=== PATIENT | female | born 1975 | race Asian ===

== ENCOUNTER 2016-12-08 00:53 | Emergency (ER) | payer OTHER ==
[~2016-12-08] VITALS: Ht 167.6 cm; Wt 117.9 kg
[~2016-12-08 00:53] MED LIST: ASA LOW DOSE81 MG OR; LISI10TA11 PO; VERAPAMIL240 M1 PO
[2016-12-08 01:30] VITALS: BP 176/98; TEMP 98.6
== END 2016-12-08 01:30 | disposition home or self-care (01) ==
LOC: ED 00:53
PROC: 09C37ZZ Extirpation of Matter from Right External Auditory Canal, Via Natural or Artificial Opening (ICD-10-PCS; principal; 2016-12-08)
DX: T16.1XXA Foreign body in right ear, initial encounter (principal); W45.8XXA Other foreign body or object entering through skin, initial encounter
CPT/HCPCS: 99283

== ENCOUNTER 2017-03-01 11:41 | Emergency (ER) | payer OTHER ==
[~2017-03-01] VITALS: Ht 167.6 cm; Wt 117.9 kg
[2017-03-01 12:32] LABS: PLATELET COUNT 238 K/uL (152-353)
[2017-03-01 13:04] VITALS: BP 151/89; TEMP 99.1
== END 2017-03-01 13:05 | disposition home or self-care (01) ==
LOC: ED 11:41
DX: J06.9 Acute upper respiratory infection, unspecified (principal); B34.9 Viral infection, unspecified
CPT/HCPCS: 85027; 87081; 87804; 87880; 94640; 94664; 94760; 99283

== ENCOUNTER 2017-08-22 20:17 | Emergency (ER) | payer OTHER ==
[~2017-08-22] VITALS: Ht 167.6 cm; Wt 117.9 kg
[2017-08-22 20:21] VITALS: TEMP 98
[2017-08-22] MEDS ORDERED: LISI20TA11 PO (20:30)
[2017-08-22 20:55] LABS: PLATELET COUNT 277 K/uL (152-353)
[2017-08-22 21:03] LABS: POTASSIUM 3.3 mmol/L (3.6-5.2)
[2017-08-22 21:29] VITALS: BP 150/71
== END 2017-08-22 21:30 | disposition home or self-care (01) ==
LOC: ED 20:17
DX: J06.9 Acute upper respiratory infection, unspecified (principal)
CPT/HCPCS: 36415; 80053; 85027; 87081; 87880; 99283

== ENCOUNTER 2017-08-26 11:37 | Outpatient (CLI) | payer OTHER ==
[~2017-08-26 11:37] MED LIST changes: +LISI20TA11 PO
== END 2017-08-26 11:49 | disposition short-term general hospital (02) ==
LOC: AMB 11:37
DX: J20.9 Acute bronchitis, unspecified (principal); R06.02 Shortness of breath
CPT/HCPCS: A0425; A0427

== ENCOUNTER 2017-08-26 11:53 | Inpatient (IN) | payer OTHER ==
[~2017-08-26] VITALS: Ht 167.6 cm; Wt 118.6 kg
[2017-08-26] VITALS (12 sets, daily range): BP systolic 130–209; BP diastolic 66–105; TEMP 98.6–99.4; Ht 167.6 cm; Wt 118.6 kg
[2017-08-26 13:05] LABS: PLATELET COUNT 330 K/uL (152-353)
[2017-08-26 13:27] LABS: POTASSIUM 3.6 mmol/L (3.6-5.2)
--- NOTE | 2017-08-26 16:01 | NUR ---
PT TO ICU BED 2 VIA WC FROM ER. PT AMBULATED TO BATHROOM & CHANGED INTO A GOWN, PT VOIDED 200 ML CL YELLOW URINE. PT WITH NSR, BP 158/86. DISCUSSED PT'S NICARDIPINE DRIP WITH MAXIMILIAN MONTES DE OCA, OK TO HOLD DRIP FOR NOW.
--- NOTE | 2017-08-26 16:59 | NUR ---
TALKED WITH DR DHALIWAL R/Santhosh WILLIAMSON,'HOLD FOR NOW','WE'LL JUST WATCH HER & WE'LL ORDER A PRN BP MED IV'
--- NOTE | 2017-08-26 17:30 | NUR ---
PT UP TO BR,VOIDED 250 ML CL YELLOW URINE. BP UP TO 180'S OVER 90'S WHEN FIRST BACK TO BED BUT BACK DOWN AFTER [id number].
--- NOTE | 2017-08-26 17:44 | NUR ---
MAXIMILIAN NAGY SEARCH PLANNER IN TO SEE PT. DISCUSSED BRONCHITIS & HOME MEDS.
--- NOTE | 2017-08-26 18:30 | NUR ---
PT FED SELF 75% OF MEAL.
--- NOTE | 2017-08-26 21:00 | NUR ---
B/P IS 156/101, PT IN NO DISTRESS. PT HAD NIGHTLY B/P MEDICATION LESS THAN 30 MINUTES AGO, WILL CONTINUE TO WATCH B/P CLOSELY.
--- NOTE | 2017-08-26 22:00 | NUR ---
B/P HAS DECREASED TO 147/81, WILL CONTINUE TO MONITOR CLOSELY.
--- NOTE | 2017-08-26 23:42 | NUR ---
PT AWAKE AND ORIENTED WITH NO DISTRESS NOTED, IV LOCK INTACT, O2 IN USE, PT WALKED TO BATHROOM AND BACK WITH NO PROBLEMS NOTED AND GAIT IS STEADY, NO SOB NOTED, WILL MONITOR, RAILS UP X3, BED IN LOW POSITION.
[2017-08-27] VITALS (15 sets, daily range): BP systolic 115–156; BP diastolic 57–89; TEMP 98.2–99.1
--- NOTE | 2017-08-27 00:22 | NUR ---
RESTING QUIETLY IN BED WITH EYES CLOSED, NO S/S OF PAIN OR DISTRESS NOTED, RESP RATE NONLABORED, O2 AT 2LPM VIA NC WITH SAT OF 98%, IV LOCK INTACT TO L HAND WITH NO PROBLEMS NOTED TO SITE, SENIOR FUND ACCOUNTANT IN USE, VITALS BEING MONITORED Q HOUR, B/P REMAINS NORMAL AT THIS TIME, WILL MONITOR, RAILS UP X3, BED IN LOW POSITION.
--- NOTE | 2017-08-27 02:25 | NUR ---
RESTING WITH EYES CLOSED AND NO DISTRESS NOTED, IV LOCK INTACT, O2 IN USE, VITALS STABLE, DIAMOND ASSORTER IN USE, WILL CONTINUE TO MONITOR CLOSELY, RAILS UP, BED IN LOW POSITION.
--- NOTE | 2017-08-27 06:28 | NUR ---
RESTING QUIETLY IN BED WITH EYES CLOSED ON L SIDE, NO S/S OF PAIN OR DISTRESS NOTED, IV LOCK INTACT TO L HAND, RESP RATE NONLABORED, O2 AT 2LPM VIA NC WITH SAT OF 100%, B/P WNL, VENDER IN USE, VITALS BEING MONITORED, WILL MONITOR CLOSELY, RAILS UP X3, BED IN LOW POSITION.
--- NOTE | 2017-08-27 07:50 | NUR ---
PT UP TO BATHROOM TO WASH OFF FACE AND BRUSH TEETH AT THIS TIME. PT REQUIRES NO ASSISTANCE
--- NOTE | 2017-08-27 09:05 | NUR ---
MAXIMILIAN NAGY, LOOK OUT TOWER FIRE WATCHER AT BEDSIDE ROUNDING ON PATIENT. NEW ORDERS RECEIVED.
--- NOTE | 2017-08-27 11:30 | NUR ---
DR. EDMOND AT BEDSIDE
--- NOTE | 2017-08-27 12:04 | NUR ---
VISITORS AT BEDSIDE AT THIS TIME
[2017-08-27 12:27] LABS: PLATELET COUNT 343 K/uL (152-353)
[2017-08-27 12:36] LABS: POTASSIUM 3.7 mmol/L (3.6-5.2)
--- NOTE | 2017-08-27 15:08 | NUR ---
REPORT GIVEN TO SULY GARCIA RN
--- NOTE | 2017-08-27 15:20 | NUR ---
PT TRANSFERRED TO ROOM 1117 ON MED/SURG FLOOR VIA WHEELCHAIR AT THIS TIME
[2017-08-28] VITALS: BP 120/61; TEMP 98.1
[2017-08-28 04:00] VITALS: BP 135/82; TEMP 98.2
[2017-08-28 05:21] LABS: PLATELET COUNT 316 K/uL (152-353)
[2017-08-28 08:00] VITALS: BP 154/99; TEMP 98.3
[2017-08-28] MEDS ORDERED: ALBUSOL IN (10:21)
[2017-08-28] MEDS ORDERED: AZIT250T3 PO (10:21)
[2017-08-28] MEDS ORDERED: MEDROL DOSEPAK4 MG PO (10:21)
[2017-08-28] MEDS ORDERED: ALBUTEROL4 M1 PO (10:21)
[2017-08-28] MEDS ORDERED: BUDE1AER3 INH (10:21)
[2017-08-28 12:00] VITALS: BP 131/92; TEMP 98.5
--- NOTE | 2017-08-28 14:09 | NUR ---
PT GONE TO X-RAY AT THIS TIME
--- NOTE | 2017-08-28 14:19 | NUR ---
PT BACK TO ROOM FROM RADIOLOGY AT THIS TIME
--- NOTE | 2017-08-28 15:27 | NUR ---
22G IV TO THE LEFT HAND D/C AT THIS TIME. PT TOLERATED WELL. DISCHARGE INSTRUCTIONS WERE GIVEN TO PT AT THIS TIME. PT VERBALIZED UNDERSTANDING OF INSTRUCTIONS AND NEW MEDICATIONS. PT IS NOW AWAITING A RIDE HOME AT THIS TIME.
--- NOTE | 2017-08-28 16:15 | NUR ---
PT D/C VIA WHEELCHAIR AT THIS TIME
== END 2017-08-28 16:15 | disposition home or self-care (01) | DRG 202 ==
LOC: ED 11:53 → ICU 14:00 → MED/SURG 08-27 15:19
PROVIDERS: ADMIT Family Medicine
DX: J20.9 Acute bronchitis, unspecified (principal); J98.11 Atelectasis; I16.0 Hypertensive urgency; E66.01 Morbid (severe) obesity due to excess calories; R05 Cough; I51.7 Cardiomegaly
CPT/HCPCS: 80053; 83880; 84484; 85027; 85379; 86738; 93005; 94640; 94664; 94760; 96374; 96375; 99285; J0360; J0456; J0696; J1650; J1940; J2270; J2930; J3490; Q9963

== ENCOUNTER 2018-05-25 12:03 | Emergency (ER) | payer OTHER ==
[~2018-05-25] VITALS: Ht 167.6 cm; Wt 121.6 kg
[~2018-05-25 12:03] MED LIST changes: +ALBUSOL IN; +ALBUTEROL4 M1 PO; +AZIT250T3 PO; +BUDE1AER3 INH; +MEDROL DOSEPAK4 MG PO
[2018-05-25 13:44] LABS: PLATELET COUNT 246 K/uL (152-353)
[2018-05-25 13:55] LABS: POTASSIUM 3.8 mmol/L (3.6-5.2)
[2018-05-25 14:55] VITALS: BP 148/88; TEMP 98
== END 2018-05-25 14:55 | disposition home or self-care (01) ==
LOC: ED 12:03
PROVIDERS: Family Medicine
DX: J40 Bronchitis, not specified as acute or chronic (principal)
CPT/HCPCS: 36415; 80053; 81000; 85027; 87502; 87651; 99283

== ENCOUNTER 2018-05-25 21:38 | Emergency (ER) | payer OTHER ==
[~2018-05-25] VITALS: Ht 167.6 cm; Wt 121.6 kg
[2018-05-25 23:14] VITALS: BP 168/98; TEMP 98.8
== END 2018-05-25 23:15 | disposition home or self-care (01) ==
LOC: ED 21:38
DX: J40 Bronchitis, not specified as acute or chronic (principal); M79.10 Myalgia, unspecified site; I10 Essential (primary) hypertension; R00.0 Tachycardia, unspecified
CPT/HCPCS: 93005; 99282

== ENCOUNTER 2018-06-02 11:55 | Outpatient (CLI) | payer OTHER | END 2018-06-02 20:09 | disposition home or self-care (01) | LOC: RAD 11:55 | DX: J40 Bronchitis, not specified as acute or chronic (principal) ==

== ENCOUNTER 2019-04-22 11:24 | Outpatient (CLI) | payer OTHER | END 2019-04-22 16:00 | disposition home or self-care (01) | LOC: RAD 11:24 | DX: R05 Cough (principal) ==

== ENCOUNTER 2020-05-03 12:32 | Outpatient (CLI) | payer BC, OTHER | END 2020-05-03 20:46 | disposition home or self-care (01) | LOC: RAD 12:32 | PROVIDERS: ATTEND Nurse Practitioner Family | DX: Z03.89 Encounter for observation for other suspected diseases and conditions ruled out (principal) ==

== ENCOUNTER 2020-12-24 13:21 | Outpatient (CLI) | payer BC, OTHER ==
[2020-12-24 14:13] LABS: PLATELET COUNT 273 K/uL (152-353)
== END 2020-12-24 22:25 | disposition home or self-care (01) ==
LOC: RAD 13:21
PROVIDERS: ATTEND Nurse Practitioner Family
DX: U07.1 COVID-19 (principal); J12.82 Pneumonia due to coronavirus disease 2019
CPT/HCPCS: 36415; 80053; 82728; 85027; 85379; 86140; Q9963

== ENCOUNTER 2021-01-04 11:46 | Outpatient (CLI) | payer BC, OTHER ==
[2021-01-04 13:20] LABS: POTASSIUM 4.1 mmol/L (3.6-5.2); SODIUM 139 mmol/L (136-145)
== END 2021-01-04 21:43 | disposition home or self-care (01) ==
LOC: CT 11:46
PROVIDERS: ATTEND Nurse Practitioner Family
DX: U07.1 COVID-19 (principal)
CPT/HCPCS: 36415; 80053; 82550; 82553; 84484; 85379; Q9963

== ENCOUNTER 2021-01-07 13:06 | Outpatient (CLI) | payer BC, OTHER | END 2021-01-07 20:07 | disposition home or self-care (01) | LOC: RAD 13:06 | PROVIDERS: ATTEND Nurse Practitioner Family | DX: U07.1 COVID-19 (principal) ==

== ENCOUNTER 2021-01-30 15:13 | Observation (INO) | payer BC ==
[~2021-01-30] VITALS: Ht 167.6 cm; Wt 123.4 kg
[2021-01-30] VITALS (7 sets, daily range): BP systolic 151–209; BP diastolic 78–103; TEMP 100–103.2; Ht 167.6 cm; Wt 123.4 kg
[2021-01-30 16:45] LABS: POTASSIUM 3.8 mmol/L (3.6-5.2)
[2021-01-30 16:49] LABS: PLATELET COUNT 236 K/uL (152-353)
--- NOTE | 2021-01-30 18:45 | NUR ---
PT ADMITTEDT TO RM VIA WHEELCHAIR, PT AMBULATED TO BED WITHOUT ASSISTANCE, NADNOTED, NONLABORED BREATHING, PT ORIENTED TO RM AND CALL LIGHT, PT VERBALIZED UNDERSTANDING, PT HAS NO NEEDS AT THISTIME, CALL LIGHT WITHIN REACH, WILL CONTINUE TO MONITOR
--- NOTE | 2021-01-30 21:55 | NUR ---
NOTIFIED KATHRYN AT THIS TIME OF PT'S DIAGNOSIS, BP OF 176/96 ON ADMISSION, AND A FEVER OF 102.4 AND PT GIVEN TYLENOL AT THIS TIME. PHYSICIAN KATHRYN ORDERED BLOOD CULTURES TIMES TWO, A REPEAT LACTIC ACID, CRP AND TORADOL 30 MG IV Q6H X'S 4 DOSES AT THIS TIME. ALSO INSTRUCTED TO GIVE ONE TIME DOSE OF PT'S HOME MEDICATIONS VERAPAMIL 240 AND LOSARTAN 100 MG. WILL MONITIOR IN CHANGE OF FEVER AND BLOOD PRESSURE. ALSO RECIEVED ORDERS NORMAL SALINE @ 125 ML/HR/, DUONEBS Q4H, AND PULMICORT Q12H'S.
--- NOTE | 2021-01-30 23:18 | NUR ---
NOTIFIED KATHRYN AT THIS TIME OF CRP- 22.9 AND LACTIC ACID TRENDED DOWN TO 0.8.
[2021-01-31 04:00] VITALS: BP 123/56; TEMP 97.8
[2021-01-31 05:10] LABS: PLATELET COUNT 219 K/uL (152-353)
--- NOTE | 2021-01-31 05:15 | NUR ---
PT'S BP AT THIS TIME HAS RESOLVED TO 125/56 AND TEMPERATURE HAS DECREASED TO 97.8 ON VITALS AFTER TORADOL 30 MG, TYLENOL 1000 MG, AND PT'S ONE TIME DOSE OF HOME MEDICATIONS.
[2021-01-31 05:21] LABS: POTASSIUM 3.5 mmol/L (3.6-5.2)
[2021-01-31] MEDS ORDERED: VERA240T17 PO (06:51)
[2021-01-31] MEDS ORDERED: COZAAR100 MG PO (06:52)
[2021-01-31 08:00] VITALS: BP 103/50; TEMP 98.2
[2021-01-31 12:00] VITALS: BP 135/58; TEMP 97.5
--- NOTE | 2021-01-31 15:26 | NUR ---
PT DENIES ANY CURRENT PAIN/DISCOMFORT. PT UP GETTING READY TO TAKE A SHOWER. IV SITE TO RIGHT HAND COVERED AND IVF ON HOLD UNTIL AFTER SHOWER.
[2021-01-31 16:00] VITALS: BP 148/80; TEMP 98.8
--- NOTE | 2021-01-31 18:05 | NUR ---
PT LAYING IN BED IN HIGH FOWLERS POSITION. ADMINISTERED LAST ORDERED DOSE OF TORADOL. PT AMBULATED TO SHOWER WITH NO DIFFICULTY. PT HAS BEEN AFEBRILE AND MAINTAINED STABLE BLOOD PRESSURE THIS SHIFT. SON AND PARENTS VISITED PT TODAY. PT ALERT AND ORIENTED X4. NO VOICED COMPLAINTS. PT STATED THAT SHE WAS "GIVE OUT" AFTER TAKING A SHOWER AND GETTING DRESSED. ENCOURAGED PT TO REST THE REMAINDER OF THE DAY. IV SITE INTACT WITH NO SWELLING OR REDNESS NOTED. NAD NOTED. MEDS IV/PO ADMINISTERED ORDERED AND PT TOLERATED WELL. CONTINUE TO MONITIR.
[2021-01-31 20:00] VITALS: BP 151/70; TEMP 98.4
[2021-02-01] VITALS: BP 131/84; TEMP 97.7
[2021-02-01 04:00] VITALS: BP 147/82; TEMP 98.5
[2021-02-01 04:44] LABS: PLATELET COUNT 209 K/uL (152-353)
[2021-02-01 04:54] LABS: POTASSIUM 3.8 mmol/L (3.6-5.2)
[2021-02-01 08:00] VITALS: BP 155/102; TEMP 98.3
--- NOTE | 2021-02-01 08:46 | NUR ---
PT IS AWAKE ALERT AND ORIENTED AND WATCHING TELEVISION. PT TOOK MORNING MEDICATION WITHOUT ANY DIFFICULTY. HEART SOUNDS S1 AND S2 NOTED. PULSES ARE PALPATED IN ALL FOUR EXTREMITIES. LUNG SOUNDS ARE CLEAR AT THE TOP AND DIMINISHED IN LOWER LOBE, PT'S RLL IS PARALYZED AND NO LUNG SOUNDS ARE PRESENT THERE. GASTRIC SOUNDS ARE PRESENT IN ALL FOUR QUADRANTS, LAST BM WAS THIS MORNING. PT HAS A SLIGHT PRODUCTIVE COUGH WITH SMALL AMOUNTS OF YELLOWISH PHLEGM. WHEN PT WAS ASKED ABOUT HER O2 AND IF SHE WEARS IT SHE STATED THAT DR. PERALTA HAD TAKEN IT OFF OF HER BUT THAT SHE FEELS LIKE SHE BREATHES BETTER WITH IT ON SO SHE LIKES TO KEEP IT ON. FISHER CRAB EDUCATED PT ON WHEN TO WEAR O2 AND THAT HE 02 SAT WAS AT 98% AND O2 WAS NOT NEEDED AT THIS TIME. HOWEVER PT DECIDED TO KEEP IT ON. PT DENIES ANY PAIN OR NEEDS AT THIS TIME. PT WAS LEFT IN HIGH FOWLERS WITH CALL LIGHT WITHIN REACH.
[2021-02-01 12:00] VITALS: BP 166/90; TEMP 98.6
--- NOTE | 2021-02-01 17:40 | NUR ---
PT HAS RECIEVED DISCHARGE INSTRUCTIONS AND EDUCATION, PT VERBALIZED UNDERSTANDING. PRINT OUT OF EDUCATION WAS GIVEN TO PT TO REVIEW AT A LATER TIME. IV WAS REMOVED WITHOUT DIFFICULTY WITH CATHETER STILL INTACT. PT WAS DISCHARGED TO PERSONAL VEHICLE VIA WHEELCHAIR. NO ACUTE DISTRESS WAS NOTED UPON DISCHARGE FROM THE HOSPITAL.
--- NOTE | 2021-02-04 15:40 | NUR ---
i s/w Mary in central scheduling x 1300 they are working on [employer] auth for outpt stress test. Pt has FU with Dr. Talavera 02/05/21 @ 10am, pt has also been scheduled to see Dr. Alfaro-marine biologist @ 3:15PM [phone], I will fax DC summary and notify Dr. Talavera's office and the pt of appts.
== END 2021-02-01 17:40 | disposition home or self-care (01) ==
LOC: ED 15:15 → MED/SURG 17:45
PROVIDERS: Family Medicine; ADMIT Family Medicine; ATTEND Family Medicine
DX: J20.9 Acute bronchitis, unspecified (principal); I10 Essential (primary) hypertension; E66.8 Other obesity; U09.9 Post COVID-19 condition, unspecified; D72.828 Other elevated white blood cell count
CPT/HCPCS: 36415; 80053; 81000; 83605; 83735; 84100; 85027; 86038; 86140; 86431; 87040; 87635; 93005; 94640; 94664; 94760; 99220; 99283; G0378; J0456; J1885; J2543; U0003

== ENCOUNTER 2021-02-05 14:16 | Outpatient (CLI) | payer BC ==
[~2021-02-05 14:16] MED LIST changes: +COZAAR100 MG PO; +VERA240T17 PO
[2021-02-05 14:59] LABS: POTASSIUM 3.7 mmol/L (3.6-5.2)
== END 2021-02-05 20:08 | disposition home or self-care (01) ==
LOC: RESP 14:16
PROVIDERS: ATTEND Nurse Practitioner Family
DX: R07.81 Pleurodynia (principal)
CPT/HCPCS: 36415; 80053; 82550; 82553; 84484; 93005

== ENCOUNTER 2021-03-17 13:18 | Emergency (ER) | payer BC ==
[~2021-03-17] VITALS: Ht 167.6 cm; Wt 123.4 kg
[2021-03-17 15:12] VITALS: BP 169/110; TEMP 99.8
== END 2021-03-17 15:13 | disposition home or self-care (01) ==
LOC: ED 13:18
DX: J20.9 Acute bronchitis, unspecified (principal)
CPT/HCPCS: 87502; 99283

== ENCOUNTER 2021-05-08 12:21 | Outpatient (CLI) | payer OTHER | END 2021-05-08 18:55 | disposition home or self-care (01) | LOC: LABW 12:21 | PROVIDERS: ATTEND Nurse Practitioner Family | DX: J02.9 Acute pharyngitis, unspecified (principal) | CPT/HCPCS: 87651 ==

== ENCOUNTER 2021-07-10 08:30 | Outpatient (CLI) | payer BC | END 2021-07-10 18:56 | disposition home or self-care (01) | LOC: RESP 08:30 | PROVIDERS: ATTEND Nurse Practitioner Family | DX: G40.909 Epilepsy, unspecified, not intractable, without status epilepticus (principal) ==

== ENCOUNTER 2021-12-07 01:17 | Observation (INO) | payer BC ==
[~2021-12-07] VITALS: Ht 167.6 cm; Wt 131.2 kg
[2021-12-07] VITALS (10 sets, daily range): BP systolic 127–204; BP diastolic 14–107; TEMP 98–99; Ht 167.6 cm; Wt 131.2 kg
[~2021-12-07 01:17] MED LIST changes: +PAXLOVID 20 X 11 TAB PO
[2021-12-07 01:53] LABS: PLATELET COUNT 223 K/uL (152-353)
[2021-12-07 02:01] LABS: POTASSIUM 3.2 mmol/L (3.6-5.2)
[2021-12-07 02:03] LABS: PARTIAL THROMBOPLASTIN TIME 27.5 SECONDS (24.5-33.6)
[2021-12-07] MEDS ORDERED: PROAIR HFA PO (11:24)
[2021-12-07] MEDS ORDERED: BROMPHEN/PSEUDO1 SYP PO (11:26)
[2021-12-07] MEDS ORDERED: ONDANSETRON HYDR4 MG PO (11:32)
[2021-12-07] MEDS ORDERED: ARIPIPRAZOLE10 MG PO (11:34)
[2021-12-07] MEDS ORDERED: CHLORHEXADINE0.12 % PO (11:35)
[2021-12-07] MEDS ORDERED: DULOXETINE HYDR60 MG PO (11:37)
[2021-12-07] MEDS ORDERED: VITAMIN D50000 UNIT PO (11:40)
[2021-12-07] MEDS ORDERED: ARNUITY EL50 MCG/ACT NAS (11:45)
[2021-12-07] MEDS ORDERED: KETOROLAC10 MG PO (11:50)
[2021-12-07] MEDS ORDERED: CLARITIN10 M1 PO (11:50)
[2021-12-07] MEDS ORDERED: NEOM1SUS6 OTIC (11:53)
[2021-12-07] MEDS ORDERED: PENICILLN VK500 MG PO (11:55)
[2021-12-07] MEDS ORDERED: IBUPROFEN PO (11:56)
[2021-12-07] MEDS ORDERED: CRESTOR20 MG PO (11:58)
[2021-12-07] MEDS ORDERED: FAMOTIDINE40 MG PO (12:05)
[2021-12-07 12:25] LABS: PLATELET COUNT 205 K/uL (152-353)
[2021-12-07 12:45] LABS: POTASSIUM 3.5 mmol/L (3.6-5.2)
[2021-12-08] VITALS: BP 172/92; TEMP 98.6
[2021-12-08 03:45] VITALS: BP 175/90; TEMP 98.2
[2021-12-08 05:08] LABS: PLATELET COUNT 222 K/uL (152-353)
[2021-12-08 05:44] LABS: POTASSIUM 4.1 mmol/L (3.6-5.2)
[2021-12-08 06:20] VITALS: BP 182/105
[2021-12-08 12:00] VITALS: BP 192/112; TEMP 99.1
[2021-12-08 16:00] VITALS: BP 161/93; TEMP 98.6
== END 2021-12-08 17:55 | disposition home or self-care (01) ==
LOC: ED 01:17 → MED/SURG 05:00
PROVIDERS: ADMIT Emergency Medicine; ATTEND Family Medicine
DX: I16.1 Hypertensive emergency (principal); U07.1 COVID-19; R07.89 Other chest pain; R51.9 Headache, unspecified; E78.49 Other hyperlipidemia; F41.8 Other specified anxiety disorders; E66.8 Other obesity
CPT/HCPCS: 36415; 80053; 83690; 83735; 83880; 84100; 84484; 85027; 85379; 85610; 85730; 87635; 93005; 96367; 96374; 96375; 99220; 99284; G0378; J0610; J2270; J2405; J3475; J3490; U0003

== ENCOUNTER 2021-12-30 10:08 | Outpatient (CLI) | payer BC ==
[~2021-12-30 10:08] MED LIST changes: +ARIPIPRAZOLE10 MG PO; +ARNUITY EL50 MCG/ACT NAS; +BROMPHEN/PSEUDO1 SYP PO; +CHLORHEXADINE0.12 % PO; +CLARITIN10 M1 PO; +CRESTOR20 MG PO; +DULOXETINE HYDR60 MG PO; +FAMOTIDINE40 MG PO; +IBUPROFEN PO; +KETOROLAC10 MG PO; +NEOM1SUS6 OTIC; +ONDANSETRON HYDR4 MG PO; +PENICILLN VK500 MG PO; +PROAIR HFA PO; +VITAMIN D50000 UNIT PO
== END 2021-12-30 20:20 | disposition home or self-care (01) ==
LOC: MAMMO 10:08
PROVIDERS: ATTEND Family Medicine
DX: Z12.31 Encounter for screening mammogram for malignant neoplasm of breast (principal)

== ENCOUNTER 2022-03-05 10:29 | Observation (INO) | payer BC ==
[2022-03-05] VITALS (8 sets, daily range): BP systolic 144–191; BP diastolic 72–98; TEMP 97.8–98.8; Ht 167.6 cm; Wt 134.9 kg
[~2022-03-05] VITALS: Ht 167.6 cm; Wt 134.9 kg
[2022-03-05 11:15] LABS: PLATELET COUNT 244 K/uL (152-353); POTASSIUM 3.4 mmol/L (3.6-5.2)
[2022-03-05 11:27] LABS: PARTIAL THROMBOPLASTIN TIME 27.6 SECONDS (24.5-33.6)
[2022-03-05] MEDS ORDERED: SLYND4 MG PO (17:34)
[2022-03-05] MEDS ORDERED: VITAMIN D50000 UNIT PO (17:37)
[2022-03-05] MEDS ORDERED: SUMATRIPTAN50 MG PO (17:46)
[2022-03-05] MEDS ORDERED: HYDROXYCHLOR200 MG PO (17:52)
[2022-03-05] MEDS ORDERED: OMEPRAZOLE DR40 MG PO (18:01)
[2022-03-05] MEDS ORDERED: VERA240T17 PO (18:08)
[2022-03-06 03:59] VITALS: BP 151/73; TEMP 98.5
[2022-03-06 04:39] LABS: PLATELET COUNT 234 K/uL (152-353)
[2022-03-06 05:06] LABS: POTASSIUM 3.7 mmol/L (3.6-5.2)
[2022-03-06 08:00] VITALS: BP 155/100; TEMP 98.4
[2022-03-06] MEDS ORDERED: ASPIRIN 81 LOW81 MG PO (09:47)
[2022-03-06] MEDS ORDERED: HYDR25TA57 PO (10:55)
== END 2022-03-06 11:13 | disposition home or self-care (01) ==
LOC: ED 10:29 → MED/SURG 14:20
PROVIDERS: Emergency Medicine; ADMIT Internal Medicine; ATTEND Internal Medicine
DX: R53.1 Weakness (principal); R55 Syncope and collapse; I10 Essential (primary) hypertension; E66.01 Morbid (severe) obesity due to excess calories; Z68.42 Body mass index [BMI] 45.0-49.9, adult; U09.9 Post COVID-19 condition, unspecified; M79.7 Fibromyalgia; G47.33 Obstructive sleep apnea (adult) (pediatric); E11.65 Type 2 diabetes mellitus with hyperglycemia; R06.02 Shortness of breath
CPT/HCPCS: 36415; 80053; 80307; 81002; 83036; 83735; 84484; 85027; 85379; 85610; 85730; 87635; 87651; 93005; 99220; 99284; G0378; U0003

== ENCOUNTER 2022-04-09 09:01 | Outpatient (CLI) | payer BC ==
[~2022-04-09 09:01] MED LIST changes: +ASPIRIN 81 LOW81 MG PO; +HYDR25TA57 PO; +HYDROXYCHLOR200 MG PO; +OMEPRAZOLE DR40 MG PO; +SLYND4 MG PO; +SUMATRIPTAN50 MG PO
== END 2022-04-09 19:00 | disposition home or self-care (01) ==
LOC: RESP 09:01
PROVIDERS: ATTEND Nurse Practitioner Family
DX: Z09 Encounter for follow-up examination after completed treatment for conditions other than malignant neoplasm (principal); Z86.73 Personal history of transient ischemic attack (TIA), and cerebral infarction without residual deficits; Z86.79 Personal history of other diseases of the circulatory system; I10 Essential (primary) hypertension

== ENCOUNTER 2022-07-08 10:50 | Outpatient (CLI) | payer BC | END 2022-07-08 19:20 | disposition home or self-care (01) | LOC: US 10:50 | PROVIDERS: ATTEND Nurse Practitioner Family | DX: I65.29 Occlusion and stenosis of unspecified carotid artery (principal) ==